=== PATIENT | female | born 1960 | race Caucasian/White ===

== ENCOUNTER 2017-03-26 14:12 | Inpatient (IN) | payer OTHER ==
[~2017-03-26] VITALS: Ht 158.8 cm; Wt 102.4 kg
[2017-03-26] MEDS ORDERED: ceFAZolin 2 GM PREMIX 50 ML ONE (14:15)
[2017-03-26] MEDS ORDERED: DIPHTH/TETANUS/ACEL PERTUSSIS (BOOSTER) 0.5 ML VIAL/PFS IM ONE (14:16)
[2017-03-26] MEDS ORDERED: PROPOFOL 1000 MG/100 ML INJ 100 ML ONE (14:20)
[2017-03-26] MEDS ORDERED: MORPHINE SULFATE 8 MG/ML INJ ONE (14:20)
[2017-03-26] MEDS ORDERED: GENTAMICIN 80 MG PREMIX 100 ML ONE (14:34)
[2017-03-26 14:35] VITALS: O2SAT 100
[2017-03-26] MEDS ORDERED: ACETAMINOPHEN 1000 MG/100 ML 100 ML IV ONE (14:43)
[2017-03-26 14:49] LABS: I-STAT POTASSIUM 4.2 MMOL/L (3.5-4.9)
[2017-03-26 14:53] LABS: AUTOMATED NEUTROPHIL # 13.6 TH/MM3 (1.8-7.7); BASOPHIL # 0.1 TH/MM3 (0-0.2); BASOPHIL % 0.3 % (0.0-2.0); EOSINOPHIL # 0.7 TH/MM3 (0-0.4); EOSINOPHIL % 3.8 % (0.0-4.0); HEMATOCRIT 38.2 % (35.0-46.0); HEMO FLAGS DIFF FINAL; LYMPH % 20.1 % (9.0-44.0); LYMPHOCYTE # 3.9 TH/MM3 (1.0-4.8); MEAN CORPUSCULAR HEMOGLOBIN 28.4 PG (27.0-34.0); MEAN CORPUSCULAR HGB CONC 32.3 % (32.0-36.0); NEUT % 69.8 % (16.0-70.0); PLATELET COUNT 338 TH/MM3 (150-450); RED BLOOD COUNT 4.35 MIL/MM3 (4.00-5.30); RED CELL DISTRIBUTION WIDTH 13.2 % (11.6-17.2); WHITE BLOOD COUNT 19.4 TH/MM3 (4.0-11.0)
[2017-03-26] MEDS ORDERED: SODIUM CHLOR 0.9% 1000 ML INJ 1,000 ML IV SCH ×2 (15:01→18:45)
[2017-03-26 15:02] LABS: APTT (PATIENT) 22.2 SEC (24.3-30.1); PROTHROMBIN TIME - PATIENT 10.1 SEC (9.8-11.6)
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
[2017-03-26] MEDS ORDERED: MISCELLANEOUS NURSING INFORMATION XX SCH (15:15)
[2017-03-26] MEDS ORDERED: CHLORHEXIDINE GLUCONATE 2 % 1 PACK (2 CLOTHS) TOP PRN (15:15)
[2017-03-26] MEDS ORDERED: SODIUM CHLORIDE 0.9% FLUSH 10 ML FLUSH IV FLUSH PRN (15:15)
[2017-03-26] MEDS ORDERED: ONDANSETRON HCL 4 MG/2 ML VIAL IV PUSH PRN (15:15)
[2017-03-26] MEDS ORDERED: HYDROmorphone HCL PF 1 MG/ML VIAL IVP PRN (15:15)
[2017-03-26] MEDS ORDERED: ACETAMINOPHEN/HYDROcodone 325 MG/5 MG TAB PO PRN (15:15)
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
[2017-03-26] MEDS ORDERED: METOCLOPRAMIDE HCL 10 MG/2 ML VIAL ONE (15:21)
[2017-03-26] MEDS ORDERED: FAMOTIDINE 20 MG/2 ML VIAL ONE (15:21)
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
[2017-03-26] MEDS ORDERED: IOHEXOL 350 MG/ML 10 ML VIAL (for RAD DIAG) IVCONTRAST ONE (15:30)
[2017-03-26] MEDS ORDERED: DEXT 5%-NACL 0.45% 1000 ML INJ 1,000 ML IV SCH (15:56)
[2017-03-26] MEDS ORDERED: MISCELLANEOUS PHARMACY INFORMATION XX ONE (16:00)
[2017-03-26] MEDS ORDERED: Post-op Orders (for Pharmacy) MISC XX ONE (16:00)
[2017-03-26] MEDS ORDERED: diphenhydrAMINE HCL 25 MG CAP PO PRN (16:00)
[2017-03-26] MEDS ORDERED: ONDANSETRON HCL 4 MG/2 ML VIAL IVP PRN (16:00)
[2017-03-26] MEDS ORDERED: MISCELLANEOUS NURSING INFORMATION XX PRN (16:00)
[2017-03-26] MEDS ORDERED: RESP: ALBUTEROL 2.5 MG/3 ML NEB (PRN) ONE (16:39)
--- NOTE | 2017-03-26 17:27 | RADRPT ---
EXAM DATE/TIME: 03/26/2017 16:49 [facility] COMPARISON: TIBIA/FIBULA RIGHT ( 1 VW), March 26, 2017, 0:00. INDICATIONS : External fixation on right ankle in OR. MEDICAL HISTORY : None. SURGICAL HISTORY : None. ENCOUNTER: Initial ACUITY: 1 day PAIN SCORE: Non-responsive. LOCATION: Right ankle FINDINGS: Interim reduction and external fixation of the previously seen right ankle/hindfoot dislocation. Alig nment is now near-anatomic. No perceptible fracture. Large soft tissue defects are seen posteromedial ly. CONCLUSION: Reduction and external fixation of the right ankle and hindfoot into normal alignment. Eugenio Ryan MD on March 26, 2017 at 17:23 Board Certified Radiologist. This report was verified electronically.
[2017-03-26] MEDS ORDERED: BACITRACIN TOP OINT 15 GM TUBE ONE (17:56)
[2017-03-26] MEDS ORDERED: DO NOT ADM ANY ANTICOAGULANT DRUGS PRN (18:00)
[2017-03-26] MEDS ORDERED: BACITRACIN TOP OINT 15 GM TUBE TOPICAL ONE (18:15)
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
[2017-03-26] MEDS: LOW DOSE INSULIN NOVOLIN REGULAR SUPPLEMENTAL SCALE SQ SCH (18:30)
[2017-03-26] MEDS ORDERED: INSULIN NovoLIN REGULAR SUPPLEMENTAL SCALE ONE (18:33)
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
[2017-03-26] MEDS ORDERED: ONDANSETRON HCL 4 MG/2 ML VIAL IV PUSH ONE (18:47)
[2017-03-26 19:00] VITALS: BP 121/67; PULSE 89; RESP 16; TEMP 99.1; O2SAT 96
[2017-03-26] MEDS ORDERED: DEXTROSE 50% IN WATER 50 ML VIAL(D50) IV PUSH PRN (19:00)
[2017-03-26] MEDS ORDERED: GLUCAGON 1 MG/ML VIAL OTHER PRN (19:00)
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
[2017-03-26] MEDS: DOCUSATE SODIUM 50 MG/SENNA 8.6 MG TAB PO SCH (20:53)
[2017-03-26] MEDS: VANCOMYCIN INJ 1,000 MG in SODIUM CHLOR 0.9% 250 ML INJ 250 ML IV SCH (20:54)
[2017-03-26] MEDS ORDERED: DOCUSATE SODIUM 100 MG CAP PO SCH (21:00)
[2017-03-26] MEDS: ACETAMINOPHEN/HYDROcodone 325 MG/7.5 MG TAB PO PRN (22:39)
[2017-03-27] VITALS (7 sets, daily range): BP systolic 110–125; BP diastolic 58–78; PULSE 79–95; RESP 17–18; TEMP 96.9–99; O2SAT 91–97
[2017-03-27] MEDS: CHLORHEXIDINE GLUCONATE 2 % 1 PACK (2 CLOTHS) TOP SCH (03:54)
[2017-03-27] MEDS: MORPHINE SULFATE 4 MG/ML INJ IV PUSH PRN ×3 (05:17→19:26)
[2017-03-27 05:56] LABS: AUTOMATED NEUTROPHIL # 7.5 TH/MM3 (1.8-7.7); BASOPHIL % 0.2 % (0.0-2.0); EOSINOPHIL % 0.1 % (0.0-4.0); HEMO FLAGS DIFF FINAL; LYMPH % 12.4 % (9.0-44.0); LYMPHOCYTE # 1.2 TH/MM3 (1.0-4.8); MEAN CELL VOLUME 86.2 FL (80.0-100.0); MEAN CORPUSCULAR HEMOGLOBIN 29.1 PG (27.0-34.0); MEAN CORPUSCULAR HGB CONC 33.8 % (32.0-36.0); MONO % 11.1 % (0.0-8.0); NEUT % 76.2 % (16.0-70.0); PLATELET COUNT 270 TH/MM3 (150-450); RED BLOOD COUNT 3.48 MIL/MM3 (4.00-5.30); RED CELL DISTRIBUTION WIDTH 13.6 % (11.6-17.2); WHITE BLOOD COUNT 9.9 TH/MM3 (4.0-11.0)
[2017-03-27] MEDS: ACETAMINOPHEN/HYDROcodone 325 MG/7.5 MG TAB PO PRN ×6 (05:56→23:48)
[2017-03-27] MEDS: LOW DOSE INSULIN NOVOLIN REGULAR SUPPLEMENTAL SCALE SQ SCH ×5 (06:04→23:47)
[2017-03-27 06:26] LABS: BICARBONATE 22.3 MEQ/L (21.0-32.0); POTASSIUM 4.2 MEQ/L (3.5-5.1)
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
--- NOTE | 2017-03-27 06:48 | RADRPT ---
EXAM DATE/TIME: 03/27/2017 05:30 [facility] COMPARISON: CHEST SINGLE AP, March 26, 2017, 14:13. INDICATIONS : Cough and congestion, no chest pain, follow up trauma MEDICAL HISTORY : ankle fracture SURGICAL HISTORY : None. ENCOUNTER: Subsequent ACUITY: 2 days PAIN SCORE: 0/10 LOCATION: Bilateral chest FINDINGS: A single view of the chest demonstrates the lungs to be symmetrically aerated without evidence of mas s or effusion. There is a small linear band of atelectasis or scar in the left perihilar region. The cardiomediastinal contours are unremarkable. Osseous structures are intact. CONCLUSION: Small linear band of atelectasis or scarring in the left midlung. Rivera Mueller MD on March 27, 2017 at 6:46 Board Certified Radiologist. This report was verified electronically.
[2017-03-27] MEDS ORDERED: LISI40TA PO (07:40)
[2017-03-27] MEDS ORDERED: METF500T PO (07:40)
[2017-03-27] MEDS ORDERED: EXCETAB31 (07:40)
[2017-03-27] MEDS ORDERED: AMLO5TAB2 PO (07:40)
[2017-03-27] MEDS ORDERED: FISHCAP4 PO (07:40)
[2017-03-27] MEDS ORDERED: ATOR10TA15 PO (07:40)
[2017-03-27] MEDS ORDERED: CITA10TA4 PO (07:40)
[2017-03-27] MEDS ORDERED: ASPI1TAB93 (07:40)
[2017-03-27] MEDS: METHOCARBAMOL 500 MG TAB PO SCH ×3 (08:00→23:47)
[2017-03-27] MEDS: amLODIPine BESYLATE 5 MG TAB PO SCH (08:13)
[2017-03-27] MEDS: LISINOPRIL 20 MG TAB PO SCH (08:14)
[2017-03-27] MEDS: CITALOPRAM HYDROBROMIDE 20 MG TAB PO SCH (08:15)
[2017-03-27] MEDS ORDERED: PILL SPLITTER OTHER PRN (08:15)
[2017-03-27] MEDS: VANCOMYCIN INJ 1,000 MG in SODIUM CHLOR 0.9% 250 ML INJ 250 ML IV SCH ×2 (08:18→20:48)
[2017-03-27] MEDS: DOCUSATE SODIUM 50 MG/SENNA 8.6 MG TAB PO SCH ×2 (08:18→20:47)
[2017-03-27] MEDS: MULTIVITAMINS/MINERALS THERAPEUTIC TAB PO SCH (08:18)
[2017-03-27] MEDS ORDERED: PNEUMOCOCCAL POLYVALENT INJ 25 MCG/0.5 ML SYR IM ONE (10:00)
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
[2017-03-27] MEDS ORDERED: ENOXAPARIN SODIUM 40 MG/0.4 ML SYRINGE SQ SCH (16:00)
--- NOTE | 2017-03-27 18:49 | EKG ---
Date Performed: 03/26/2017 Time Performed: 15:34:23 PTAGE: 89 years EKG: Sinus rhythm NORMAL ECG NO PREVIOUS TRACING DOCTOR: Sandy Oliveira Interpretating Date/Time 03/27/2017 18:48:52
[2017-03-27] MEDS: ATORVASTATIN 10 MG TAB PO SCH (20:47)
--- NOTE | 2017-03-27 22:51 | RADRPT ---
EXAM DATE/TIME: 03/27/2017 18:18 [facility] COMPARISON: TIBIA/FIBULA RIGHT ( 1 VW), March 26, 2017, 0:00. ANKLE RIGHT LIMITED (AP&LAT), March 26, 2017 , 16:49. INDICATIONS : Evaluate fracture. RADIATION DOSE: 7.71 CTDIvol (mGy) MEDICAL HISTORY : None SURGICAL HISTORY : Right ORIF ENCOUNTER: Subsequent ACUITY: 2 days PAIN SCALE: 10/10 LOCATION: Right ankle TECHNIQUE: Volumetric scanning of the ankle was performed. Using automated exposure control and adjustment of t he mA and/or kV according to patient size, radiation dose was kept as low as reasonably achievable to obtain optimal diagnostic quality images. DICOM format image data is available electronically for review and comparison. FINDINGS: There has been successful external fixation of the previously noted severe fracture/dislocation of th e right ankle. The ankle mortise appears to be well aligned. There are small bone fragments within th e ankle joint posterolaterally which likely resent tiny avulsion fragments from the talus. The larges t of these fragments measures 7 mm. The distal tibia and fibula appear to be intact. The calcaneus ap pears to be intact. There is a tiny linear avulsion fracture fragment along the inferior lateral aspe ct of the talus in the region of the talocalcaneal joint. Multiple fracture fragments are identified in the region of the sustentaculum armen. The talonavicular joint appears to be intact. The calcaneal cuboid joint appears to be intact. The visualized remaining tarsal bones also appear to be intact wit hout significant fracture. The metatarsals are intact without fracture. CONCLUSION: Successful external fixation of the previously noted severe fracture/dislocation of t he right ankle. There are several tiny avulsion fractures adjacent to the talus with the largest ana lilia uring 7 mm posteriorly. Multiple fracture fragments are also identified in the region of the sustenta culum armen. Harshad Almanzar MD on March 27, 2017 at 22:37 Board Certified Radiologist. This report was verified electronically.
[2017-03-28] VITALS (8 sets, daily range): BP systolic 83–145; BP diastolic 58–84; PULSE 91–100; RESP 18–21; TEMP 95.6–100.5; O2SAT 91–96
[2017-03-28] MEDS: MORPHINE SULFATE 4 MG/ML INJ IV PUSH PRN (02:39)
[2017-03-28] MEDS: CHLORHEXIDINE GLUCONATE 2 % 1 PACK (2 CLOTHS) TOP SCH (04:00)
[2017-03-28 04:18] LABS: AUTOMATED NEUTROPHIL # 7.9 TH/MM3 (1.8-7.7); BASOPHIL # 0.1 TH/MM3 (0-0.2); BASOPHIL % 0.6 % (0.0-2.0); EOSINOPHIL # 0.2 TH/MM3 (0-0.4); EOSINOPHIL % 1.8 % (0.0-4.0); HEMATOCRIT 29.7 % (35.0-46.0); HEMO FLAGS DIFF FINAL; LYMPH % 24.7 % (9.0-44.0); LYMPHOCYTE # 3.2 TH/MM3 (1.0-4.8); MEAN CELL VOLUME 87.7 FL (80.0-100.0); MEAN CORPUSCULAR HEMOGLOBIN 28.9 PG (27.0-34.0); MEAN CORPUSCULAR HGB CONC 32.9 % (32.0-36.0); MONO % 12.6 % (0.0-8.0); NEUT % 60.3 % (16.0-70.0); PLATELET COUNT 300 TH/MM3 (150-450); RED BLOOD COUNT 3.39 MIL/MM3 (4.00-5.30); RED CELL DISTRIBUTION WIDTH 13.5 % (11.6-17.2); WHITE BLOOD COUNT 13.1 TH/MM3 (4.0-11.0)
[2017-03-28 04:49] LABS: BICARBONATE 26.4 MEQ/L (21.0-32.0)
[2017-03-28] MEDS: LOW DOSE INSULIN NOVOLIN REGULAR SUPPLEMENTAL SCALE SQ SCH (05:35)
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
[2017-03-28] MEDS ORDERED: WHEEMIS3 (07:54)
[2017-03-28] MEDS ORDERED: BEDSIDE COMMODE1 MI1 (07:54)
[2017-03-28] MEDS ORDERED: WALKER WHEELS/F1 MIS (07:54)
--- NOTE | 2017-03-28 07:55 | HHI.FF ---
Face to Face Verification Diagnosis: (1) Open right ankle fracture Physical Therapy Order: Evaluate and Treat, Improve ambulation, Strength and gait training Home Health Nursing Order: Wound care and dressing changes Nursing assessment with vital signs I have seen patient Shelley Hendricks on 03/28/17. My clinical findings support the need for the requested home health care services because: Limited ability to care for self High risk of falls I certify that my clinical findings support that this patient is homebound because: Post-op weakness Unsteady gait/balance Martina Andino Mar 28, 2017 07:55
[2017-03-28] MEDS ORDERED: LACTULOSE SYRUP 20 GM/30 ML CUP PO ONE ×2 (08:00→14:00)
--- NOTE | 2017-03-28 08:57 | PD.ORT.PN ---
Subjective Post Op Day #: 2 Subjective Remarks pain under control. family in room. Objective Vitals Vital Signs Date Time Temp Pulse Resp B/P (MAP) Pulse Ox O2 Delivery O2 Flow Rate FiO2 03/28/17 07:32 97.2 100 21 122/72 (89) 91 03/28/17 04:15 96.7 97 21 101/62 (75) 94 03/28/17 02:35 91 118/64 (82) 03/28/17 00:10 98.1 93 18 145/84 (104) 96 03/27/17 20:30 96.9 95 18 110/78 (89) 94 03/27/17 16:00 98.1 82 18 125/64 (84) 94 03/27/17 12:00 97.6 82 18 114/68 (83) 91 I/O 03/27/17 03/27/17 03/27/17 03/28/17 03/28/17 03/28/17 07:00 15:00 23:00 07:00 15:00 23:00 Intake Total 250 ml 840 ml 240 ml 0 ml Output Total 2000 ml 800 ml 425 ml 525 ml Balance -1750 ml 40 ml -185 ml -525 ml Intake Oral 250 ml 840 ml 240 ml 0 ml Output Urine Total 2000 ml 800 ml 425 ml 525 ml # Voids 0 # Bowel Movements 0 0 0 0 Result Diagram: 03/28/1735103/28/17351 Imaging Last 24 hours Impressions Thoracic Spine CT 03/26/171422 Signed Impressions: Service Date/Time: Sunday, March 26, 2017 14:50 - CONCLUSION: No acute bony injury in the thoracic spine Eugenio Duenas MD Pelvis X-Ray 03/26/171422 Signed Impressions: Service Date/Time: Sunday, March 26, 2017 14:13 - CONCLUSION: 1. No significant acute fracture or dislocation. Guillaume Mckinney MD Lumbar Spine CT 03/26/171422 Signed Impressions: Service Date/Time: Sunday, March 26, 2017 14:50 - CONCLUSION: Left L2 transverse process fracture. Eugenio Duenas MD Head CT 03/26/171422 Signed Impressions: Service Date/Time: Sunday, March 26, 2017 14:44 - CONCLUSION: 1. No acute intracranial abnormality. Guillaume Mckinney MD Chest X-Ray 03/26/171422 Signed Impressions: Service Date/Time: Sunday, March 26, 2017 14:13 - CONCLUSION: 1. Negative portable chest status post trauma. Guillaume Mckinney MD Chest CT 03/26/171422 Signed Impressions: Service Date/Time: Sunday, March 26, 2017 14:50 - CONCLUSION: Minimal bilateral perihilar parenchymal opacity which may be mild contusion. Eugenio Duenas MD Cervical Spine CT 03/26/171422 Signed Impressions: Service Date/Time: Sunday, March 26, 2017 14:44 - CONCLUSION: 1. No acute fracture or subluxation. Guillaume Mckinney MD Abdomen/Pelvis CT 03/26/171422 Signed Impressions: Service Date/Time: Sunday, March 26, 2017 14:50 - CONCLUSION: Left lower quadrant abdominal wall subcutaneous tissue edema and hematoma. Left L2 transverse process fracture. Eugenio Duenas MD Objective Remarks RLE: +exfix. pin sites clean and dry. intact. NVI Assessment & Plan Ortho Post Op Day #: 2 Problem List: Assessment and Plan 1) Right Ankle dislocation s/p exfix - POD 2 -NWB -elevate -pin care BID -CT scan shows no evidence of fracture to ankle. -plan for sx tomorrow to include I&D with possible revision of ex-fix, possible internal fixation -NPO after midnight, hold lovenox today -continue vanco -sign consents Todd Arita Mar 28, 2017 08:57
[2017-03-28] MEDS: MULTIVITAMINS/MINERALS THERAPEUTIC TAB PO SCH (09:01)
[2017-03-28] MEDS: CITALOPRAM HYDROBROMIDE 20 MG TAB PO SCH (09:01)
[2017-03-28] MEDS: VANCOMYCIN INJ 1,000 MG in SODIUM CHLOR 0.9% 250 ML INJ 250 ML IV SCH ×2 (09:01→20:22)
[2017-03-28] MEDS: METHOCARBAMOL 500 MG TAB PO SCH ×3 (09:02→23:34)
[2017-03-28] MEDS: LISINOPRIL 20 MG TAB PO SCH (09:02)
[2017-03-28] MEDS: DOCUSATE SODIUM 50 MG/SENNA 8.6 MG TAB PO SCH ×2 (09:02→20:18)
[2017-03-28] MEDS: amLODIPine BESYLATE 5 MG TAB PO SCH (09:02)
[2017-03-28] MEDS: ACETAMINOPHEN/HYDROcodone 325 MG/7.5 MG TAB PO PRN (09:03)
[2017-03-28] MEDS: GABAPENTIN 300 MG CAP PO SCH ×3 (09:11→18:09)
[2017-03-28] MEDS ORDERED: ACETAMINOPHEN/HYDROcodone 325 MG/5 MG TAB PO PRN (11:30)
[2017-03-28] MEDS ORDERED: GLUCAGON 1 MG/ML VIAL OTHER PRN (13:00)
[2017-03-28] MEDS ORDERED: DEXTROSE 50% IN WATER 50 ML VIAL(D50) IV PUSH PRN (13:00)
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
[2017-03-28] MEDS ORDERED: CALCIUM CARBONATE 500 MG CHEWABLE TAB CHEW PRN (16:15)
[2017-03-28] MEDS ORDERED: INSULIN NovoLIN REGULAR SUPPLEMENTAL SCALE SQ SCH (17:00)
[2017-03-28] MEDS: metFORMIN HCL 500 MG TAB PO SCH (18:09)
[2017-03-28] MEDS: ATORVASTATIN 10 MG TAB PO SCH (20:18)
[2017-03-28] MEDS: ACETAMINOPHEN/HYDROcodone 325 MG/10 MG TAB PO PRN (20:19)
[2017-03-29 00:30] VITALS: BP 104/88; PULSE 100; RESP 19; TEMP 98.1; O2SAT 95
[2017-03-29] MEDS ORDERED: SODIUM CHLORID 0.9% 500 ML IV PRN (01:00)
[2017-03-29] MEDS ORDERED: CHLORHEXIDINE GLUCONATE 2 % 1 PACK (2 CLOTHS) TOPICAL PRN (01:00)
[2017-03-29] MEDS ORDERED: LACTATED RINGER'S 1000 ML IV PRN (01:00)
[2017-03-29] MEDS ORDERED: POVIDONE IODINE 5% (ANTISEPSIS KIT) 4 APPLICATIONS EACH NARE PRN (01:00)
[2017-03-29] MEDS: ACETAMINOPHEN/HYDROcodone 325 MG/10 MG TAB PO PRN ×2 (04:19→09:20)
[2017-03-29 04:20] VITALS: BP 139/83; PULSE 121; RESP 19; TEMP 100.5; O2SAT 95
[2017-03-29 07:37] VITALS: BP 115/69; PULSE 102; RESP 19; TEMP 98.5; O2SAT 97
[2017-03-29] MEDS: METHOCARBAMOL 500 MG TAB PO SCH ×3 (08:00→23:58)
[2017-03-29] MEDS: CITALOPRAM HYDROBROMIDE 20 MG TAB PO SCH (09:00)
[2017-03-29] MEDS: DOCUSATE SODIUM 50 MG/SENNA 8.6 MG TAB PO SCH ×2 (09:00→20:26)
[2017-03-29] MEDS: metFORMIN HCL 500 MG TAB PO SCH ×2 (09:00→18:00)
[2017-03-29] MEDS: MULTIVITAMINS/MINERALS THERAPEUTIC TAB PO SCH (09:00)
[2017-03-29] MEDS: GABAPENTIN 300 MG CAP PO SCH ×3 (09:00→18:00)
[2017-03-29] MEDS: VANCOMYCIN INJ 1,000 MG in SODIUM CHLOR 0.9% 250 ML INJ 250 ML IV SCH ×2 (09:20→20:27)
[2017-03-29] MEDS: amLODIPine BESYLATE 5 MG TAB PO SCH (09:20)
[2017-03-29] MEDS: LISINOPRIL 20 MG TAB PO SCH (09:20)
[2017-03-29 11:38] VITALS: BP 98/71; PULSE 105; RESP 19; TEMP 98; O2SAT 98
[2017-03-29] MEDS ORDERED: LACTULOSE SYRUP 20 GM/30 ML CUP PO PRN (13:15)
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
[2017-03-29] MEDS ORDERED: GENTAMICIN SULFATE 80 MG/2 ML VIAL ONE (15:07)
[2017-03-29] MEDS ORDERED: DEXT 5%-NACL 0.45% 1000 ML INJ 1,000 ML IV SCH (15:47)
[2017-03-29] MEDS ORDERED: HYDR-3288 PO (15:51)
[2017-03-29] MEDS ORDERED: ENOX40P SQ (15:52)
[2017-03-29] MEDS ORDERED: ASPI81CH6 CHEW (15:53)
[2017-03-29] MEDS ORDERED: diphenhydrAMINE HCL 25 MG CAP PO PRN (16:00)
[2017-03-29] MEDS ORDERED: MAGNESIUM HYDROXIDE SUSP 30 ML CUP PO PRN (16:00)
[2017-03-29] MEDS ORDERED: MORPHINE SULFATE 4 MG/ML INJ IV PUSH PRN (16:00)
[2017-03-29] MEDS ORDERED: Post-op Orders (for Pharmacy) MISC XX ONE (16:00)
[2017-03-29] MEDS ORDERED: ONDANSETRON HCL 4 MG/2 ML VIAL IVP PRN (16:00)
[2017-03-29] MEDS ORDERED: MISCELLANEOUS PHARMACY INFORMATION XX ONE (16:00)
[2017-03-29] MEDS ORDERED: MISCELLANEOUS NURSING INFORMATION XX PRN (16:00)
[2017-03-29] MEDS ORDERED: ceFAZolin 2 GM PREMIX 50 ML ONE (16:01)
[2017-03-29] MEDS ORDERED: DO NOT ADM ANY ANTICOAGULANT DRUGS PRN (17:07)
[2017-03-29] MEDS ORDERED: *morphine SULFATE 8 MG/ML PERIprocedure ONLY ONE (17:24)
--- NOTE | 2017-03-29 17:37 | RADRPT ---
EXAM DATE/TIME: 03/29/2017 16:39 [facility] COMPARISON: No previous studies available for comparison. INDICATIONS : Revision of ex-fix, rt foot. MEDICAL HISTORY : None. SURGICAL HISTORY : None. ENCOUNTER: Subsequent ACUITY: 1 day PAIN SCORE: Non-responsive. LOCATION: Right Foot FINDINGS: There are postsurgical changes with operative reduction and internal fixation of the previously seen fracture. The alignment is anatomic. CONCLUSION: Postsurgical changes as above. Dean Lewis MD on March 29, 2017 at 17:34 Board Certified Radiologist. This report was verified electronically.
[2017-03-29] MEDS: ATORVASTATIN 10 MG TAB PO SCH (20:26)
[2017-03-29] MEDS: ACETAMINOPHEN/HYDROcodone 325 MG/7.5 MG TAB PO PRN (20:26)
[2017-03-29] MEDS ORDERED: DOCUSATE SODIUM 50 MG/SENNA 8.6 MG TAB PO SCH (21:00)
[2017-03-29 21:37] VITALS: BP 100/63; PULSE 87; RESP 16; TEMP 98.9; O2SAT 98
[2017-03-29] MEDS ORDERED: MAGN30S PO (21:40)
[2017-03-29] MEDS ORDERED: THERM PO (21:40)
[2017-03-29] MEDS ORDERED: Lactulose Liq PO (21:40)
[2017-03-29] MEDS ORDERED: METH500T3 PO (21:40)
[2017-03-29] MEDS ORDERED: NEUR300C PO (21:40)
[2017-03-29] MEDS ORDERED: FAMO20TA2 PO (21:40)
[2017-03-29] MEDS ORDERED: PERI PO (21:40)
[2017-03-29] MEDS: MAGNESIUM HYDROXIDE SUSP 30 ML CUP PO SCH (22:16)
[2017-03-29] MEDS: LACTULOSE SYRUP 20 GM/30 ML CUP PO SCH (22:16)
[2017-03-29 22:25] LABS: AUTOMATED NEUTROPHIL # 8.1 TH/MM3 (1.8-7.7); BASOPHIL % 0.3 % (0.0-2.0); EOSINOPHIL # 0.1 TH/MM3 (0-0.4); EOSINOPHIL % 0.6 % (0.0-4.0); HEMATOCRIT 26.7 % (35.0-46.0); HEMO FLAGS DIFF FINAL; LYMPH % 11.9 % (9.0-44.0); LYMPHOCYTE # 1.2 TH/MM3 (1.0-4.8); MEAN CELL VOLUME 88.4 FL (80.0-100.0); MEAN CORPUSCULAR HEMOGLOBIN 28.8 PG (27.0-34.0); MEAN CORPUSCULAR HGB CONC 32.6 % (32.0-36.0); MONO % 4.7 % (0.0-8.0); NEUT % 82.5 % (16.0-70.0); PLATELET COUNT 243 TH/MM3 (150-450); RED BLOOD COUNT 3.03 MIL/MM3 (4.00-5.30); RED CELL DISTRIBUTION WIDTH 13.5 % (11.6-17.2); WHITE BLOOD COUNT 9.9 TH/MM3 (4.0-11.0)
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
[2017-03-30 00:52] VITALS: BP 118/68; PULSE 79; RESP 16; TEMP 97.6; O2SAT 94
[2017-03-30] MEDS: METHOCARBAMOL 500 MG TAB PO SCH ×2 (04:49→15:37)
[2017-03-30 04:58] VITALS: BP 109/65; PULSE 80; RESP 16; TEMP 98.1; O2SAT 97
[2017-03-30] MEDS: ACETAMINOPHEN/HYDROcodone 325 MG/7.5 MG TAB PO PRN ×3 (05:21→15:37)
[2017-03-30 06:20] LABS: AUTOMATED NEUTROPHIL # 7.4 TH/MM3 (1.8-7.7); BASOPHIL % 0.3 % (0.0-2.0); EOSINOPHIL % 0.3 % (0.0-4.0); HEMATOCRIT 25.2 % (35.0-46.0); HEMO FLAGS DIFF FINAL; LYMPH % 14.6 % (9.0-44.0); LYMPHOCYTE # 1.4 TH/MM3 (1.0-4.8); MEAN CELL VOLUME 88.5 FL (80.0-100.0); MEAN CORPUSCULAR HEMOGLOBIN 30.1 PG (27.0-34.0); MONO % 7.5 % (0.0-8.0); NEUT % 77.3 % (16.0-70.0); PLATELET COUNT 217 TH/MM3 (150-450); RED BLOOD COUNT 2.84 MIL/MM3 (4.00-5.30); RED CELL DISTRIBUTION WIDTH 13.4 % (11.6-17.2); WHITE BLOOD COUNT 9.6 TH/MM3 (4.0-11.0)
[2017-03-30 06:27] LABS: BICARBONATE 25.5 MEQ/L (21.0-32.0); POTASSIUM 4.7 MEQ/L (3.5-5.1)
[2017-03-30 08:00] VITALS: BP 109/69; PULSE 71; RESP 18; TEMP 96; O2SAT 96
--- NOTE | 2017-03-30 08:06 | PD.ORT.PN ---
Subjective Post Op Day #: 1 Subjective Remarks pain under control. Objective Vitals Vital Signs Date Time Temp Pulse Resp B/P (MAP) Pulse Ox O2 Delivery O2 Flow Rate FiO2 03/30/17 04:58 98.1 80 16 109/65 (80) 97 03/30/17 00:52 97.6 79 16 118/68 (85) 94 03/29/17 21:37 98.9 87 16 100/63 (75) 98 03/29/17 18:25 93 16 105/54 (71) 94 Nasal Cannula 3 03/29/17 18:00 97.8 91 16 113/55 (74) 94 Nasal Cannula 3 03/29/17 17:45 94 15 123/56 (78) 93 Nasal Cannula 3 03/29/17 17:30 97 15 132/59 (83) 92 Nasal Cannula 3 03/29/17 17:29 15 03/29/17 17:15 99 15 138/60 (86) 97 Simple Mask 8 03/29/17 17:05 98.4 100 16 150/69 (96) 95 Simple Mask 8 03/29/17 11:38 98.0 105 19 98/71 (80) 98 I/O 03/29/17 03/29/17 03/29/17 03/30/17 03/30/17 03/30/17 07:00 15:00 23:00 07:00 15:00 23:00 Intake Total 0 ml 1300 ml 250 ml Output Total 700 ml 900 ml Balance -700 ml 400 ml 250 ml Intake Oral 0 ml IV Total 250 ml Other 1300 ml Output Urine Total 700 ml 850 ml Estimated Blood Loss 50 ml # Bowel Movements 0 Result Diagram: 03/30/17 0603 03/30/17 0603 Imaging Last 24 hours Impressions Thoracic Spine CT 03/26/171422 Signed Impressions: Service Date/Time: Sunday, March 26, 2017 14:50 - CONCLUSION: No acute bony injury in the thoracic spine Eugenio Duenas MD Pelvis X-Ray 03/26/171422 Signed Impressions: Service Date/Time: Sunday, March 26, 2017 14:13 - CONCLUSION: 1. No significant acute fracture or dislocation. Guillaume Mckinney MD Lumbar Spine CT 03/26/171422 Signed Impressions: Service Date/Time: Sunday, March 26, 2017 14:50 - CONCLUSION: Left L2 transverse process fracture. Eguenio Duenas MD Head CT 03/26/171422 Signed Impressions: Service Date/Time: Sunday, March 26, 2017 14:44 - CONCLUSION: 1. No acute intracranial abnormality. Guillauem Mckinney MD Chest X-Ray 03/26/171422 Signed Impressions: Service Date/Time: Sunday, March 26, 2017 14:13 - CONCLUSION: 1. Negative portable chest status post trauma. Guillaume Mckinney MD Chest CT 03/26/171422 Signed Impressions: Service Date/Time: Sunday, March 26, 2017 14:50 - CONCLUSION: Minimal bilateral perihilar parenchymal opacity which may be mild contusion. Eugenio Duenas MD Cervical Spine CT 03/26/171422 Signed Impressions: Service Date/Time: Sunday, March 26, 2017 14:44 - CONCLUSION: 1. No acute fracture or subluxation. Guillaume Mckinney MD Abdomen/Pelvis CT 03/26/171422 Signed Impressions: Service Date/Time: Sunday, March 26, 2017 14:50 - CONCLUSION: Left lower quadrant abdominal wall subcutaneous tissue edema and hematoma. Left L2 transverse process fracture. Eugenio Duenas MD Objective Remarks RLE: +exfix. pin sites clean and dry. intact. NVI Assessment & Plan Ortho Post Op Day #: 1 Problem List: Assessment and Plan 1) Right Ankle open dislocation s/p I&D exfix - POD 3 I&D with modification of exfix R ankle - POD 1 -NWB -elevate -pin care BID -CT scan shows no evidence of fracture to ankle. -lovenox -continue vanco -d/c planning to snf -f/up dr. sanchez 1-2 weeks Todd Arita Mar 30, 2017 08:06
[2017-03-30] MEDS: amLODIPine BESYLATE 5 MG TAB PO SCH (09:00)
[2017-03-30] MEDS ORDERED: FAMOTIDINE 20 MG TAB PO SCH (09:00)
[2017-03-30] MEDS ORDERED: MULTIVITAMINS/MINERALS THERAPEUTIC TAB PO SCH (09:00)
[2017-03-30] MEDS ORDERED: POLYETHYLENE GLYCOL 17 GM PKG PO SCH (09:00)
[2017-03-30] MEDS: LISINOPRIL 20 MG TAB PO SCH (09:00)
[2017-03-30] MEDS: VANCOMYCIN INJ 1,000 MG in SODIUM CHLOR 0.9% 250 ML INJ 250 ML IV SCH (09:28)
[2017-03-30] MEDS: GABAPENTIN 300 MG CAP PO SCH ×3 (09:28→17:52)
[2017-03-30] MEDS: metFORMIN HCL 500 MG TAB PO SCH ×2 (09:28→17:52)
[2017-03-30] MEDS: CITALOPRAM HYDROBROMIDE 20 MG TAB PO SCH (09:28)
[2017-03-30] MEDS: DOCUSATE SODIUM 50 MG/SENNA 8.6 MG TAB PO SCH (09:28)
[2017-03-30] MEDS: MAGNESIUM HYDROXIDE SUSP 30 ML CUP PO SCH (09:29)
[2017-03-30] MEDS: LACTULOSE SYRUP 20 GM/30 ML CUP PO SCH (09:29)
[2017-03-30 12:00] VITALS: BP 142/82; PULSE 75; RESP 18; TEMP 97.3; O2SAT 97
[2017-03-30 14:42] VITALS: O2SAT 96
[2017-03-30] MEDS ORDERED: BACT800T5 PO (15:21)
[2017-03-30] MEDS ORDERED: DOXY1CAP91 (15:24)
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
[2017-03-30] MEDS ORDERED: ENOXAPARIN SODIUM 40 MG/0.4 ML SYRINGE SQ SCH (17:00)
== END 2017-03-30 18:48 | DRG 493 ==
LOC: NEPI 14:12 → EDBD 15:08 → NEDA 15:08 → N06A 20:00
PROVIDERS: ADMIT Surgery; ATTEND Surgery
PROC: 0QSL04Z Reposition Right Tarsal with Internal Fixation Device, Open Approach (ICD-10-PCS; 2017-03-26)
PROC: 0QHL35Z Insertion of External Fixation Device into Right Tarsal, Percutaneous Approach (ICD-10-PCS; 2017-03-26)
PROC: 0SSH04Z Reposition Right Tarsal Joint with Internal Fixation Device, Open Approach (ICD-10-PCS; 2017-03-26)
PROC: 0QBL0ZZ Excision of Right Tarsal, Open Approach (ICD-10-PCS; 2017-03-26)
PROC: 0KDV0ZZ Extraction of Right Foot Muscle, Open Approach (ICD-10-PCS; 2017-03-29)
PROC: 0QBL0ZZ Excision of Right Tarsal, Open Approach (ICD-10-PCS; 2017-03-29)
PROC: 0SSF04Z Reposition Right Ankle Joint with Internal Fixation Device, Open Approach (ICD-10-PCS; principal; 2017-03-29 15:47)
DX: S92.101B Unspecified fracture of right talus, initial encounter for open fracture (principal); S32.029A Unspecified fracture of second lumbar vertebra, initial encounter for closed fracture; S27.322A Contusion of lung, bilateral, initial encounter; Z68.41 Body mass index [BMI] 40.0-44.9, adult; S93.04XA Dislocation of right ankle joint, initial encounter; I10 Essential (primary) hypertension; E11.9 Type 2 diabetes mellitus without complications; S92.211B Displaced fracture of cuboid bone of right foot, initial encounter for open fracture; S92.001B Unspecified fracture of right calcaneus, initial encounter for open fracture; V49.59XA Passenger injured in collision with other motor vehicles in traffic accident, initial encounter; Y92.410 Unspecified street and highway as the place of occurrence of the external cause; E78.5 Hyperlipidemia, unspecified; E66.9 Obesity, unspecified; Z23 Encounter for immunization
CPT/HCPCS: 70450; 71010; 71260; 72125; 72128; 72131; 72170; 73600; 73620; 73700; 74177; 76000; 80048; 82435; 82565; 82947; 82948; 84132; 84295; 84520; 85025; 85610; 85730; 86850; 86900; 86901; 90715; 90732; 93005; 94150; A0431-QM-SH; A0436-QM-SH; C1713; J0131; J0690; J1580; J1650; J2270; J2405; J2765; J3370; J7030; J7050; J7613; L8699; Q9967